=== PATIENT | female | born 1975 | race African-American/Black ===

== ENCOUNTER 2018-04-22 11:26 | Emergency (ER) | payer OTHER ==
[~2018-04-22] VITALS: Ht 172.7 cm; Wt 60.0 kg
[2018-04-22 11:28] VITALS: BP 113/87
== END 2018-04-22 17:04 | disposition left against medical advice (07) ==
LOC: ER 11:26
DX: R10.9 Unspecified abdominal pain (principal); R19.7 Diarrhea, unspecified; Z53.21 Procedure and treatment not carried out due to patient leaving prior to being seen by health care provider